=== PATIENT | female | born 1990 | race American Indian/Alaskan Native ===

== ENCOUNTER 2018-04-07 12:52 | Emergency (ER) | payer OTHER ==
[~2018-04-07] VITALS: Ht 162.6 cm; Wt 43.1 kg
[~2018-04-07 12:52] MED LIST: ADVIL100 M1; LEVSIN/SL0.125 MG SL; PNEU16DI2
== END 2018-04-07 16:26 | disposition home or self-care (01) ==
LOC: ER 12:52
DX: S00.03XA Contusion of scalp, initial encounter (principal); S00.83XA Contusion of other part of head, initial encounter; S80.11XA Contusion of right lower leg, initial encounter; S70.01XA Contusion of right hip, initial encounter; M54.2 Cervicalgia; M62.838 Other muscle spasm; V43.52XA Car driver injured in collision with other type car in traffic accident, initial encounter; Y93.89 Activity, other specified; Y92.488 Other paved roadways as the place of occurrence of the external cause; Y99.8 Other external cause status